=== PATIENT | male | born 1955 | race Caucasian/White ===

== ENCOUNTER 2018-01-12 12:11 | Inpatient (IN) | payer MEDICARE, OTHER ==
[2018-01-12 13:06] LABS: WHITE BLOOD COUNT 16.6 10^3/ul (4.8-10.8)
[2018-01-12 13:06] LABS: ABNORMAL IP MESSAGE 1; HEMOGLOBIN 11.2 g/dl (14.0-18.0); MEAN CORPUSCULAR HEMOGLOBIN 29.7 pg (29.0-33.0); MEAN CORPUSCULAR HGB CONC 31.1 g/dl (32.0-37.0); MEAN CORPUSCULAR VOLUME 95.5 fl (82.0-101.0); MEAN PLATELET VOLUME 13.4 fl (7.4-10.4); PLATELET COUNT 223 10^3/UL (140-415); POSITIVE DIFF @See below; RED BLOOD COUNT 3.77 10^6/ul (4.70-6.10); RED CELL DISTRIBUTION WIDTH 15.3 % (11.5-14.5)
[2018-01-12 13:08] LABS: ADD MAN DIFF? YES
[2018-01-12 13:23] LABS: LACTIC ACID 1.6 mmol/L (0.5-2.0)
[2018-01-12 13:26] LABS: ACANTHOCYTES 1+ (0-0); ANISOCYTOSIS 1+ (0-0); BAND NEUTROPHILS #M 0.9 10^3/ul (0.0-0.6); BAND NEUTROPHILS % (M) 6 % (0-4); LYMPHOCYTES #M 2.9 10^3/ul (0.8-2.9); LYMPHOCYTES % (M) 18 % (15-51); MONOCYTE #M 0.8 10^3/ul (0.3-0.9); MONOCYTES % (M) 5 % (0-11); PLATELET ESTIMATE NORMAL; POIKILOCYTOSIS 1+ (0-0); REACTIVE LYMPHOCYTES #M 0.3 10^3/ul (0.0-0.0); REACTIVE LYMPHOCYTES% (M) 2 % (0-0); SEG NEUT #M 11.6 10^3/ul (1.6-7.5); SEGMENTED NEUTROPHILS (M) % 69 % (39-77); SMUDGE%M 8 % (0-0)
[2018-01-12 13:32] LABS: ALANINE AMINOTRANSFERASE 41 IU/L (13-69); ALBUMIN/GLOBULIN RATIO 1.02; ALKALINE PHOSPHATASE 102 IU/L (42-121); ANION GAP 20 (8-16); ASPARTATE AMINO TRANSFERASE 51 IU/L (15-46); BILIRUBIN,INDIRECT 0.6 mg/dl (0-1.1); BILIRUBIN,TOTAL 0.6 mg/dl (0.2-1.3); BLOOD UREA NITROGEN 116 mg/dl (7-20); CARBON DIOXIDE 27 mmol/L (21-31); CHLORIDE 107 mmol/L (97-110); CREATININE 3.99 mg/dl (0.61-1.24); GLUCOSE 104 mg/dl (70-220); LIPASE 74 U/L (23-300); POTASSIUM 5.2 mmol/L (3.5-5.1); SODIUM 149 mmol/L (135-144); TOTAL PROTEIN 7.9 g/dl (6.1-8.1)
[2018-01-12] MEDS: SODIUM CHLORIDE 0.9% 1L BAG IV* (14:20)
[2018-01-12] MEDS: SOD CHLORIDE 0.9% 500 ML IV (14:20)
[2018-01-12 14:27] LABS: ADD UMIC YES; UR ASCORBIC ACID NEGATIVE (NEGATIVE); UR BILIRUBIN (Dip) NEGATIVE (NEGATIVE); UR BLOOD (Dip) NEGATIVE (NEGATIVE); UR CLARITY SLIGHTLY CLOUDY (CLEAR); UR COLOR AMBER (YELLOW); UR GLUCOSE (Dip) NEGATIVE (NEGATIVE); UR KETONES (Dip) NEGATIVE (NEGATIVE); UR LEUKOCYTE ESTERASE (Dip) TRACE Leu/ul (NEGATIVE); UR MUCUS FEW /HPF (NONE SEEN); UR NITRITE (Dip) NEGATIVE (NEGATIVE); UR RBC 3 /HPF (0-5); UR SPECIFIC GRAVITY (Dip) 1.021 (1.003-1.030); UR TOTAL PROTEIN (Dip) NEGATIVE (NEGATIVE); UR UROBILINOGEN (Dip) 1+ mg/dL (NEGATIVE); UR WBC 10 /HPF (0-5)
[2018-01-12] MEDS: CEFEPIME 2GM/50 ML (PMX) 50 ML IVPB (14:51)
[2018-01-12] MEDS: VANCOMYCIN 1 GM (PMX) 250 ML IVPB (15:58)
[2018-01-12] MEDS ORDERED: ONDANSETRON 4 MG INJ IV (17:30)
[2018-01-12] MEDS ORDERED: ACETAMINOPHEN 325 MG TAB PO (17:30)
[2018-01-12] MEDS ORDERED: NACL 0.9% 3 ML SYG IV (18:00)
[2018-01-12] MEDS ORDERED: DOCUSATE SODIUM 100 MG CAP PO (18:00)
[2018-01-12] MEDS ORDERED: PIPER-TAZO 3.375 GM IV (PMX) 100 ML IVPB (18:00)
[2018-01-12] MEDS ORDERED: ALBUTEROL/IPRATROPIUM (NEB) 3 ML AMP HHN (18:00)
[2018-01-12] MEDS: metroNIDAZOLE 500 MG/NS (PMX) 100 ML IVPB ×2 (19:10→22:15)
[2018-01-12] MEDS: SOD CHLORIDE 0.9% 1,000 ML IV (19:11)
[2018-01-12] MEDS: ALBUTEROL/IPRATROPIUM (NEB) 3 ML AMP HHN (20:00)
[2018-01-12 20:20] LABS: LACTIC ACID 0.8 mmol/L (0.5-2.0)
[2018-01-12] MEDS: LEVOFLOXACIN 250MG/D5W (PMX) 50 ML IVPB (20:20)
[2018-01-12] MEDS: ONDANSETRON 4 MG INJ IV (20:36)
[2018-01-12] MEDS: morphine 2 MG INJ IV (20:37)
[2018-01-12] MEDS: ESCITALOPRAM 10 MG TAB GTB (22:15)
[2018-01-12 22:54] LABS: SODIUM,URINE RANDOM < 13 mmol/L (30-90)
[2018-01-12 22:58] LABS: PROTEIN/CREAT RATIO 0.09 RATIO
[2018-01-13] MEDS: morphine 2 MG INJ IV ×2 (05:16→12:01)
[2018-01-13] MEDS: metroNIDAZOLE 500 MG/NS (PMX) 100 ML IVPB ×3 (05:28→20:23)
[2018-01-13] MEDS: PANTOPRAZOLE 40 MG INJ IV (05:28)
[2018-01-13 06:31] LABS: HEMATOCRIT 30.9 % (42.0-52.0); HEMOGLOBIN 9.6 g/dl (14.0-18.0); MEAN CORPUSCULAR HEMOGLOBIN 30.5 pg (29.0-33.0); MEAN CORPUSCULAR HGB CONC 31.1 g/dl (32.0-37.0); MEAN CORPUSCULAR VOLUME 98.1 fl (82.0-101.0); PLATELET COUNT 177 10^3/UL (140-415); POSITIVE DIFF @See below; RED BLOOD COUNT 3.15 10^6/ul (4.70-6.10); RED CELL DISTRIBUTION WIDTH 14.7 % (11.5-14.5)
[2018-01-13 06:31] LABS: WHITE BLOOD COUNT 10.7 10^3/ul (4.8-10.8)
[2018-01-13 06:34] LABS: ADD MAN DIFF? YES
[2018-01-13 06:59] LABS: URIC ACID 10.2 mg/dl (3.1-7.9)
[2018-01-13 06:59] LABS: CREATINE KINASE 34 IU/L (23-200)
[2018-01-13 07:01] LABS: ALANINE AMINOTRANSFERASE 36 IU/L (13-69); ALBUMIN 2.9 g/dl (3.3-4.9); ALBUMIN/GLOBULIN RATIO 0.93; ALKALINE PHOSPHATASE 75 IU/L (42-121); ANION GAP 21 (8-16); ASPARTATE AMINO TRANSFERASE 28 IU/L (15-46); BILIRUBIN,INDIRECT 0.5 mg/dl (0-1.1); BILIRUBIN,TOTAL 0.5 mg/dl (0.2-1.3); BLOOD UREA NITROGEN 101 mg/dl (7-20); CALCIUM 8.1 mg/dl (8.4-10.2); CARBON DIOXIDE 22 mmol/L (21-31); CHLORIDE 117 mmol/L (97-110); GLUCOSE 76 mg/dl (70-220); MAGNESIUM 2.5 mg/dl (1.7-2.5); POTASSIUM 4.9 mmol/L (3.5-5.1); SODIUM 155 mmol/L (135-144)
[2018-01-13 07:36] LABS: ANISOCYTOSIS 1+ (0-0); BAND NEUTROPHILS % (M) 10 % (0-4); BURR CELLS 1+ (0-0); EOSINOPHILS % (M) 2 % (0-7); LYMPHOCYTES #M 1.2 10^3/ul (0.8-2.9); LYMPHOCYTES % (M) 12 % (15-51); MONOCYTE #M 0.9 10^3/ul (0.3-0.9); MONOCYTES % (M) 9 % (0-11); MYELOCYTES #M 0.1 10^3/ul (0.0-0.0); MYELOCYTES % (M) 1 % (0-0); PLATELET ESTIMATE NORMAL; POIKILOCYTOSIS 2+ (0-0); POLYCHROMASIA 1+ (0-0); PROMYELOCYTES #M 0.1 10^3/ul (0-0); PROMYELOCYTES % (M) 1 % (0-0); SEG NEUT #M 7.1 10^3/ul (1.6-7.5); SEGMENTED NEUTROPHILS (M) % 65 % (39-77); SMUDGE%M 6 % (0-0)
[2018-01-13] MEDS: ALBUTEROL/IPRATROPIUM (NEB) 3 ML AMP HHN ×3 (09:31→19:27)
[2018-01-13] MEDS: THIAMINE 100 MG TAB GTB (10:17)
[2018-01-13] MEDS: MULTIVITAMINS 30 ML CUP GTB (10:17)
[2018-01-13] MEDS: SOD CHLORIDE 0.45% 1,000 ML IV ×3 (10:51→23:41)
[2018-01-13 14:58] LABS: ANION GAP 21 (8-16); BLOOD UREA NITROGEN 90 mg/dl (7-20); CALCIUM 8.5 mg/dl (8.4-10.2); CARBON DIOXIDE 21 mmol/L (21-31); CHLORIDE 118 mmol/L (97-110); CREATININE 2.42 mg/dl (0.61-1.24); GLUCOSE 71 mg/dl (70-220); POTASSIUM 4.6 mmol/L (3.5-5.1); SODIUM 155 mmol/L (135-144)
[2018-01-13] MEDS: LORAZEPAM 2 MG INJ IV (16:16)
[2018-01-13] MEDS: morphine LIQ (10 MG/5 ML) CUP PO ×2 (17:19→23:36)
[2018-01-13] MEDS: HYDROCODONE/APAP (5/325) TAB PO (20:23)
[2018-01-13] MEDS: ESCITALOPRAM 10 MG TAB GTB (20:23)
[2018-01-14] MEDS: PANTOPRAZOLE 40 MG INJ IV (05:30)
[2018-01-14] MEDS: morphine LIQ (10 MG/5 ML) CUP PO ×4 (05:31→22:27)
[2018-01-14] MEDS: metroNIDAZOLE 500 MG/NS (PMX) 100 ML IVPB ×3 (05:31→21:15)
[2018-01-14 06:51] LABS: ADD MAN DIFF? NO
[2018-01-14 06:54] LABS: BASOPHILS % 0.3 % (0.0-2.0); EOSINOPHILS # 0.5 10^3/ul (0.0-0.5); EOSINOPHILS % 4.4 % (0.0-7.0); HEMATOCRIT 30.2 % (42.0-52.0); LYMPHOCYTES # 1.4 10^3/ul (0.8-2.9); MEAN CORPUSCULAR HEMOGLOBIN 29.3 pg (29.0-33.0); MEAN CORPUSCULAR HGB CONC 29.8 g/dl (32.0-37.0); MEAN CORPUSCULAR VOLUME 98.4 fl (82.0-101.0); MONOCYTE # 1.3 10^3/ul (0.3-0.9); MONOCYTES % 12.4 % (0.0-11.0); NEUTROPHILS % 68.2 % (39.0-77.0); PLATELET COUNT 183 10^3/UL (140-415); POSITIVE DIFF @See below; RED BLOOD COUNT 3.07 10^6/ul (4.70-6.10); RED CELL DISTRIBUTION WIDTH 14.9 % (11.5-14.5)
[2018-01-14 06:54] LABS: WHITE BLOOD COUNT 10.3 10^3/ul (4.8-10.8)
[2018-01-14 07:36] LABS: ANION GAP 23 (8-16); BLOOD UREA NITROGEN 70 mg/dl (7-20); CALCIUM 8.9 mg/dl (8.4-10.2); CARBON DIOXIDE 19 mmol/L (21-31); CHLORIDE 120 mmol/L (97-110); CREATININE 1.85 mg/dl (0.61-1.24); GLUCOSE 60 mg/dl (70-220); MAGNESIUM 2.4 mg/dl (1.7-2.5); PHOSPHORUS 4.2 mg/dl (2.5-4.9); POTASSIUM 4.8 mmol/L (3.5-5.1); SODIUM 157 mmol/L (135-144)
[2018-01-14] MEDS: ALBUTEROL/IPRATROPIUM (NEB) 3 ML AMP HHN ×3 (08:27→19:35)
[2018-01-14] MEDS: DEXTROSE 5% 1,000 ML IV ×2 (09:34→18:30)
[2018-01-14] MEDS: THIAMINE 100 MG TAB GTB (09:38)
[2018-01-14] MEDS: MULTIVITAMINS 30 ML CUP GTB (09:44)
[2018-01-14] MEDS: LORAZEPAM 2 MG INJ IV ×3 (09:46→21:36)
[2018-01-14 10:48] LABS: ANISOCYTOSIS 1+ (0-0); BAND NEUTROPHILS #M 0.5 10^3/ul (0.0-0.6); BAND NEUTROPHILS % (M) 5 % (0-4); EOSINOPHILS % (M) 5 % (0-7); ERYTHROBLAST% (NRBC) (M) 1 % (0-0); LYMPHOCYTES #M 1.7 10^3/ul (0.8-2.9); LYMPHOCYTES % (M) 17 % (15-51); MONOCYTE #M 0.4 10^3/ul (0.3-0.9); MONOCYTES % (M) 4 % (0-11); MYELOCYTES #M 0.1 10^3/ul (0.0-0.0); MYELOCYTES % (M) 1 % (0-0); PLATELET ESTIMATE NORMAL; POIKILOCYTOSIS 2+ (0-0); POLYCHROMASIA 2+ (0-0); REACTIVE LYMPHOCYTES #M 0.2 10^3/ul (0.0-0.0); REACTIVE LYMPHOCYTES% (M) 2 % (0-0); SEG NEUT #M 6.8 10^3/ul (1.6-7.5); SEGMENTED NEUTROPHILS (M) % 66 % (39-77); SMUDGE%M 3 % (0-0)
[2018-01-14] MEDS: DIVALPROEX (EC) 250 MG TAB PO ×2 (14:46→21:13)
[2018-01-14 16:16] LABS: ANION GAP 16 (8-16); BLOOD UREA NITROGEN 62 mg/dl (7-20); CALCIUM 8.7 mg/dl (8.4-10.2); CARBON DIOXIDE 23 mmol/L (21-31); CHLORIDE 118 mmol/L (97-110); CREATININE 1.44 mg/dl (0.61-1.24); GLUCOSE 93 mg/dl (70-220); POTASSIUM 4.5 mmol/L (3.5-5.1); SODIUM 152 mmol/L (135-144)
[2018-01-14 18:15] LABS: OSMOLALITY,URINE 517 mOsm/kg (250-1200)
[2018-01-14] MEDS: LEVOFLOXACIN 250MG/D5W (PMX) 50 ML IVPB (21:10)
[2018-01-14] MEDS: LEVETIRACETAM 250 MG TAB PO (21:11)
[2018-01-14] MEDS: ESCITALOPRAM 10 MG TAB GTB (21:11)
[2018-01-15] MEDS: CYCLOBENZAPRINE 10 MG TAB GTB ×2 (02:04→21:37)
[2018-01-15] MEDS: HYDROCODONE/APAP (5/325) TAB PO ×3 (02:04→16:59)
[2018-01-15] MEDS: DEXTROSE 5% 1,000 ML IV ×2 (04:30→14:30)
[2018-01-15] MEDS: LORAZEPAM 2 MG INJ IV (04:56)
[2018-01-15] MEDS: PANTOPRAZOLE 40 MG INJ IV (05:01)
[2018-01-15] MEDS: metroNIDAZOLE 500 MG/NS (PMX) 100 ML IVPB ×3 (05:06→21:28)
[2018-01-15 06:54] LABS: ADD MAN DIFF? NO
[2018-01-15 07:01] LABS: BASOPHILS % 0.2 % (0.0-2.0); EOSINOPHILS # 0.6 10^3/ul (0.0-0.5); EOSINOPHILS % 7.8 % (0.0-7.0); HEMATOCRIT 25.8 % (42.0-52.0); HEMOGLOBIN 7.8 g/dl (14.0-18.0); LYMPHOCYTES # 0.9 10^3/ul (0.8-2.9); LYMPHOCYTES % 11.2 % (15.0-51.0); MEAN CORPUSCULAR HEMOGLOBIN 29.9 pg (29.0-33.0); MEAN CORPUSCULAR HGB CONC 30.2 g/dl (32.0-37.0); MEAN CORPUSCULAR VOLUME 98.9 fl (82.0-101.0); MONOCYTE # 1.1 10^3/ul (0.3-0.9); MONOCYTES % 13.2 % (0.0-11.0); NEUTROPHIL # 5.5 10^3/ul (1.6-7.5); NEUTROPHILS % 67.1 % (39.0-77.0); PLATELET COUNT 142 10^3/UL (140-415); RED BLOOD COUNT 2.61 10^6/ul (4.70-6.10); RED CELL DISTRIBUTION WIDTH 14.6 % (11.5-14.5)
[2018-01-15 07:01] LABS: WHITE BLOOD COUNT 8.2 10^3/ul (4.8-10.8)
[2018-01-15 07:34] LABS: ANION GAP 12 (8-16); BLOOD UREA NITROGEN 54 mg/dl (7-20); CALCIUM 8.1 mg/dl (8.4-10.2); CARBON DIOXIDE 23 mmol/L (21-31); CHLORIDE 116 mmol/L (97-110); CREATININE 1.22 mg/dl (0.61-1.24); GLUCOSE 129 mg/dl (70-220); PHOSPHORUS 3.5 mg/dl (2.5-4.9); POTASSIUM 3.8 mmol/L (3.5-5.1); SODIUM 147 mmol/L (135-144)
[2018-01-15] MEDS ORDERED: ALBUTEROL HFA 8 GM INHALER INH (08:00)
[2018-01-15] MEDS ORDERED: IPRATROPIUM (HFA) 12.9 GM INHALER INH (08:00)
[2018-01-15] MEDS: ALBUTEROL/IPRATROPIUM (NEB) 3 ML AMP HHN ×3 (08:41→19:39)
[2018-01-15] MEDS: THIAMINE 100 MG TAB GTB (08:53)
[2018-01-15] MEDS: DIVALPROEX (EC) 250 MG TAB PO ×3 (08:53→21:31)
[2018-01-15] MEDS: MULTIVITAMINS 30 ML CUP GTB (08:53)
[2018-01-15] MEDS: LEVETIRACETAM 250 MG TAB PO ×2 (08:53→21:30)
[2018-01-15] MEDS: morphine LIQ (10 MG/5 ML) CUP PO ×2 (11:44→21:45)
[2018-01-15 14:02] LABS: HEMATOCRIT 28.2 % (42.0-52.0); HEMOGLOBIN 8.7 g/dl (14.0-18.0)
[2018-01-15] MEDS: LEVOFLOXACIN 500MG/D5W (PMX) 100 ML IVPB (21:28)
[2018-01-15] MEDS: ESCITALOPRAM 10 MG TAB GTB (21:31)
[2018-01-16] MEDS: HYDROCODONE/APAP (5/325) TAB PO ×4 (01:49→21:26)
[2018-01-16] MEDS: PANTOPRAZOLE 40 MG INJ IV (03:50)
[2018-01-16] MEDS: metroNIDAZOLE 500 MG/NS (PMX) 100 ML IVPB ×2 (03:50→13:32)
[2018-01-16 06:34] LABS: ADD MAN DIFF? NO
[2018-01-16 06:41] LABS: BASOPHILS % 0.2 % (0.0-2.0); EOSINOPHILS # 0.6 10^3/ul (0.0-0.5); EOSINOPHILS % 7.7 % (0.0-7.0); HEMATOCRIT 28.4 % (42.0-52.0); HEMOGLOBIN 8.9 g/dl (14.0-18.0); LYMPHOCYTES # 0.8 10^3/ul (0.8-2.9); LYMPHOCYTES % 9.2 % (15.0-51.0); MEAN CORPUSCULAR HEMOGLOBIN 30.6 pg (29.0-33.0); MEAN CORPUSCULAR HGB CONC 31.3 g/dl (32.0-37.0); MEAN CORPUSCULAR VOLUME 97.6 fl (82.0-101.0); MEAN PLATELET VOLUME 12.7 fl (7.4-10.4); MONOCYTE # 0.8 10^3/ul (0.3-0.9); MONOCYTES % 9.3 % (0.0-11.0); NEUTROPHILS % 73.1 % (39.0-77.0); PLATELET COUNT 141 10^3/UL (140-415); POSITIVE DIFF @See below; RED BLOOD COUNT 2.91 10^6/ul (4.70-6.10); RED CELL DISTRIBUTION WIDTH 14.5 % (11.5-14.5)
[2018-01-16 06:41] LABS: WHITE BLOOD COUNT 8.2 10^3/ul (4.8-10.8)
[2018-01-16 07:38] LABS: PROTEIN, TOTAL 5.9 g/dL (6.1-8.1)
[2018-01-16] MEDS: ALBUTEROL/IPRATROPIUM (NEB) 3 ML AMP HHN ×3 (07:55→19:47)
[2018-01-16 07:56] LABS: ANION GAP 14 (8-16); BLOOD UREA NITROGEN 44 mg/dl (7-20); CALCIUM 8.2 mg/dl (8.4-10.2); CARBON DIOXIDE 23 mmol/L (21-31); CHLORIDE 116 mmol/L (97-110); CREATININE 1.13 mg/dl (0.61-1.24); GLUCOSE 99 mg/dl (70-220); MAGNESIUM 1.9 mg/dl (1.7-2.5); PHOSPHORUS 3.6 mg/dl (2.5-4.9); SODIUM 149 mmol/L (135-144)
[2018-01-16 08:44] LABS: ANISOCYTOSIS 2+ (0-0); BAND NEUTROPHILS #M 0.9 10^3/ul (0.0-0.6); BAND NEUTROPHILS % (M) 11 % (0-4); EOSINOPHILS % (M) 12 % (0-7); GIANT THROMBO% (M) 1 % (0-0); LYMPHOCYTES #M 0.9 10^3/ul (0.8-2.9); LYMPHOCYTES % (M) 11 % (15-51); MONOCYTE #M 0.5 10^3/ul (0.3-0.9); MONOCYTES % (M) 7 % (0-11); MYELOCYTES % (M) 1 % (0-0); PLATELET ESTIMATE NORMAL; POIKILOCYTOSIS 2+ (0-0); POLYCHROMASIA 3+ (0-0); SEG NEUT #M 4.8 10^3/ul (1.6-7.5); SEGMENTED NEUTROPHILS (M) % 58 % (39-77); SMUDGE%M 2 % (0-0)
[2018-01-16] MEDS: DIVALPROEX (EC) 250 MG TAB PO ×3 (09:04→21:20)
[2018-01-16] MEDS: THIAMINE 100 MG TAB GTB (09:04)
[2018-01-16] MEDS: LEVETIRACETAM 250 MG TAB PO ×2 (09:04→21:20)
[2018-01-16] MEDS: MULTIVITAMINS 30 ML CUP GTB (09:04)
[2018-01-16] MEDS: CYCLOBENZAPRINE 10 MG TAB GTB (09:47)
[2018-01-16] MEDS: BISACODYL (EC) 5 MG TAB PO (12:03)
[2018-01-16] MEDS: DEXTROSE 5% 1,000 ML IV (13:32)
[2018-01-16] MEDS: morphine LIQ (10 MG/5 ML) CUP PO (17:39)
[2018-01-16] MEDS: ESCITALOPRAM 10 MG TAB GTB (21:20)
[2018-01-17] MEDS: PANTOPRAZOLE 40 MG INJ IV (04:10)
[2018-01-17] MEDS: HYDROCODONE/APAP (5/325) TAB PO ×2 (04:10→11:33)
[2018-01-17] MEDS: ALBUTEROL/IPRATROPIUM (NEB) 3 ML AMP HHN ×3 (07:29→19:34)
[2018-01-17 07:44] LABS: ADD MAN DIFF? NO
[2018-01-17] MEDS: MULTIVITAMINS 30 ML CUP GTB (07:53)
[2018-01-17] MEDS: LEVETIRACETAM 250 MG TAB PO ×2 (07:53→21:20)
[2018-01-17] MEDS: DIVALPROEX (EC) 250 MG TAB PO ×3 (07:53→21:24)
[2018-01-17] MEDS: DEXTROSE 5% 1,000 ML IV (07:53)
[2018-01-17] MEDS: THIAMINE 100 MG TAB GTB (07:53)
[2018-01-17] MEDS: morphine LIQ (10 MG/5 ML) CUP PO (07:53)
[2018-01-17 07:55] LABS: WHITE BLOOD COUNT 6.8 10^3/ul (4.8-10.8)
[2018-01-17 07:55] LABS: ABNORMAL IP MESSAGE 1; BASOPHILS % 0.3 % (0.0-2.0); EOSINOPHILS # 0.7 10^3/ul (0.0-0.5); EOSINOPHILS % 9.8 % (0.0-7.0); HEMATOCRIT 26.5 % (42.0-52.0); HEMOGLOBIN 8.1 g/dl (14.0-18.0); LYMPHOCYTES % 15.1 % (15.0-51.0); MEAN CORPUSCULAR HEMOGLOBIN 29.7 pg (29.0-33.0); MEAN CORPUSCULAR HGB CONC 30.6 g/dl (32.0-37.0); MEAN CORPUSCULAR VOLUME 97.1 fl (82.0-101.0); MEAN PLATELET VOLUME 13.4 fl (7.4-10.4); MONOCYTE # 0.9 10^3/ul (0.3-0.9); MONOCYTES % 12.6 % (0.0-11.0); NEUTROPHIL # 4.2 10^3/ul (1.6-7.5); NEUTROPHILS % 61.8 % (39.0-77.0); PLATELET COUNT 146 10^3/UL (140-415); POSITIVE DIFF @See below; RED BLOOD COUNT 2.73 10^6/ul (4.70-6.10); RED CELL DISTRIBUTION WIDTH 14.7 % (11.5-14.5)
[2018-01-17 08:41] LABS: ANION GAP 14 (8-16); BLOOD UREA NITROGEN 41 mg/dl (7-20); CALCIUM 8.3 mg/dl (8.4-10.2); CARBON DIOXIDE 22 mmol/L (21-31); CHLORIDE 114 mmol/L (97-110); GLUCOSE 98 mg/dl (70-220); MAGNESIUM 1.9 mg/dl (1.7-2.5); PHOSPHORUS 3.5 mg/dl (2.5-4.9); POTASSIUM 4.2 mmol/L (3.5-5.1); SODIUM 146 mmol/L (135-144)
[2018-01-17] MEDS: LORAZEPAM 2 MG INJ IV ×3 (08:44→21:24)
[2018-01-17] MEDS: CYCLOBENZAPRINE 10 MG TAB GTB (10:06)
[2018-01-17] MEDS: ACETAMINOPHEN 325 MG TAB PO (10:06)
[2018-01-17] MEDS: MAGNESIUM HYDROXIDE 30ML CUP PO (11:32)
[2018-01-17] MEDS ORDERED: VITAMIN A & D 5 GM OINT PACKET TOP (12:49)
[2018-01-17] MEDS: ESCITALOPRAM 10 MG TAB GTB (21:20)
[2018-01-18] MEDS: PANTOPRAZOLE 40 MG INJ IV (05:17)
[2018-01-18] MEDS: morphine LIQ (10 MG/5 ML) CUP PO ×4 (05:17→23:04)
[2018-01-18] MEDS: DEXTROSE 5% 1,000 ML IV (05:30)
[2018-01-18] MEDS: ALBUTEROL/IPRATROPIUM (NEB) 3 ML AMP HHN ×3 (07:15→19:29)
[2018-01-18 08:01] LABS: ADD MAN DIFF? NO
[2018-01-18 08:35] LABS: ANION GAP 12 (8-16); BLOOD UREA NITROGEN 35 mg/dl (7-20); CARBON DIOXIDE 24 mmol/L (21-31); CHLORIDE 108 mmol/L (97-110); CREATININE 0.87 mg/dl (0.61-1.24); GLUCOSE 105 mg/dl (70-220); PHOSPHORUS 2.7 mg/dl (2.5-4.9); POTASSIUM 3.5 mmol/L (3.5-5.1); SODIUM 140 mmol/L (135-144)
[2018-01-18] MEDS: MULTIVITAMINS 30 ML CUP GTB (09:09)
[2018-01-18] MEDS: LEVETIRACETAM 250 MG TAB PO ×2 (09:09→20:22)
[2018-01-18] MEDS: DIVALPROEX (EC) 250 MG TAB PO ×3 (09:10→20:22)
[2018-01-18] MEDS: THIAMINE 100 MG TAB GTB (09:11)
[2018-01-18 09:44] LABS: ABNORMAL IP MESSAGE 1; BASOPHILS % 0.1 % (0.0-2.0); EOSINOPHILS # 0.6 10^3/ul (0.0-0.5); EOSINOPHILS % 9.4 % (0.0-7.0); HEMATOCRIT 26.2 % (42.0-52.0); HEMOGLOBIN 8.3 g/dl (14.0-18.0); LYMPHOCYTES % 13.9 % (15.0-51.0); MEAN CORPUSCULAR HEMOGLOBIN 30.3 pg (29.0-33.0); MEAN CORPUSCULAR HGB CONC 31.7 g/dl (32.0-37.0); MEAN CORPUSCULAR VOLUME 95.6 fl (82.0-101.0); MEAN PLATELET VOLUME 13.3 fl (7.4-10.4); MONOCYTE # 0.7 10^3/ul (0.3-0.9); MONOCYTES % 10.4 % (0.0-11.0); NEUTROPHIL # 4.5 10^3/ul (1.6-7.5); NEUTROPHILS % 65.5 % (39.0-77.0); PLATELET COUNT 157 10^3/UL (140-415); POSITIVE DIFF @See below; RED BLOOD COUNT 2.74 10^6/ul (4.70-6.10); RED CELL DISTRIBUTION WIDTH 14.6 % (11.5-14.5)
[2018-01-18 09:44] LABS: WHITE BLOOD COUNT 6.8 10^3/ul (4.8-10.8)
[2018-01-18 16:16] LABS: CREATININE, RANDOM URINE 61 mg/dL (20-370); PROTEIN/CREATININE RATIO 492 mg/g creat (22-128)
[2018-01-18] MEDS: ESCITALOPRAM 10 MG TAB GTB (20:22)
[2018-01-19] MEDS: DEXTROSE 5% 1,000 ML IV (02:28)
[2018-01-19] MEDS: morphine LIQ (10 MG/5 ML) CUP PO ×3 (06:37→18:34)
[2018-01-19] MEDS: MAGNESIUM HYDROXIDE 30ML CUP PO (06:38)
[2018-01-19] MEDS: PANTOPRAZOLE 40 MG INJ IV (06:38)
[2018-01-19 07:40] LABS: ADD MAN DIFF? NO
[2018-01-19 07:46] LABS: WHITE BLOOD COUNT 6.3 10^3/ul (4.8-10.8)
[2018-01-19 07:46] LABS: BASOPHILS % 0.3 % (0.0-2.0); EOSINOPHILS # 0.7 10^3/ul (0.0-0.5); EOSINOPHILS % 10.9 % (0.0-7.0); HEMATOCRIT 26.6 % (42.0-52.0); HEMOGLOBIN 8.4 g/dl (14.0-18.0); LYMPHOCYTES # 1.1 10^3/ul (0.8-2.9); LYMPHOCYTES % 16.9 % (15.0-51.0); MEAN CORPUSCULAR HGB CONC 31.6 g/dl (32.0-37.0); MEAN PLATELET VOLUME 12.7 fl (7.4-10.4); MONOCYTE # 0.9 10^3/ul (0.3-0.9); NEUTROPHIL # 3.6 10^3/ul (1.6-7.5); NEUTROPHILS % 56.8 % (39.0-77.0); PLATELET COUNT 184 10^3/UL (140-415); RED CELL DISTRIBUTION WIDTH 14.7 % (11.5-14.5)
[2018-01-19 08:05] LABS: ANION GAP 9 (8-16); BLOOD UREA NITROGEN 32 mg/dl (7-20); CALCIUM 8.1 mg/dl (8.4-10.2); CARBON DIOXIDE 27 mmol/L (21-31); CHLORIDE 108 mmol/L (97-110); CREATININE 0.82 mg/dl (0.61-1.24); GLUCOSE 104 mg/dl (70-220); POTASSIUM 3.7 mmol/L (3.5-5.1); SODIUM 140 mmol/L (135-144)
[2018-01-19] MEDS: ALBUTEROL/IPRATROPIUM (NEB) 3 ML AMP HHN ×3 (08:28→19:48)
[2018-01-19] MEDS: LEVETIRACETAM 250 MG TAB PO ×2 (09:31→20:46)
[2018-01-19] MEDS: THIAMINE 100 MG TAB GTB (09:31)
[2018-01-19] MEDS: DIVALPROEX (EC) 250 MG TAB PO ×3 (09:31→20:46)
[2018-01-19] MEDS: MULTIVITAMINS 30 ML CUP GTB (09:31)
[2018-01-19] MEDS: ESCITALOPRAM 10 MG TAB GTB (20:46)
[2018-01-19 20:57] LABS: ALBUMIN 2.8 g/dL (3.8-4.8); ALPHA-1-GLOBULINS 0.4 g/dL (0.2-0.3); ALPHA-2-GLOBULINS 0.9 g/dL (0.5-0.9); BETA 2 GLOBULINS 0.2 g/dL (0.2-0.5); BETA GLOBULINS 0.4 g/dL (0.4-0.6); GAMMA GLOBULINS 1.1 g/dL (0.8-1.7)
[2018-01-20] MEDS: DEXTROSE 5% 1,000 ML IV (00:36)
[2018-01-20] MEDS: PANTOPRAZOLE 40 MG INJ IV (06:05)
[2018-01-20 07:20] LABS: ADD MAN DIFF? NO
[2018-01-20 07:26] LABS: WHITE BLOOD COUNT 5.8 10^3/ul (4.8-10.8)
[2018-01-20 07:26] LABS: BASOPHILS % 0.3 % (0.0-2.0); EOSINOPHILS # 0.5 10^3/ul (0.0-0.5); EOSINOPHILS % 9.1 % (0.0-7.0); HEMOGLOBIN 8.1 g/dl (14.0-18.0); LYMPHOCYTES # 1.1 10^3/ul (0.8-2.9); LYMPHOCYTES % 18.7 % (15.0-51.0); MEAN CORPUSCULAR HEMOGLOBIN 29.2 pg (29.0-33.0); MEAN CORPUSCULAR HGB CONC 31.2 g/dl (32.0-37.0); MEAN CORPUSCULAR VOLUME 93.9 fl (82.0-101.0); MEAN PLATELET VOLUME 12.7 fl (7.4-10.4); MONOCYTE # 0.8 10^3/ul (0.3-0.9); MONOCYTES % 14.1 % (0.0-11.0); NEUTROPHIL # 3.3 10^3/ul (1.6-7.5); NEUTROPHILS % 55.9 % (39.0-77.0); PLATELET COUNT 198 10^3/UL (140-415); RED BLOOD COUNT 2.77 10^6/ul (4.70-6.10)
[2018-01-20 07:58] LABS: ANION GAP 10 (8-16); BLOOD UREA NITROGEN 30 mg/dl (7-20); CALCIUM 8.2 mg/dl (8.4-10.2); CARBON DIOXIDE 26 mmol/L (21-31); CHLORIDE 108 mmol/L (97-110); CREATININE 0.69 mg/dl (0.61-1.24); GLUCOSE 95 mg/dl (70-220); MAGNESIUM 1.9 mg/dl (1.7-2.5); PHOSPHORUS 3.4 mg/dl (2.5-4.9); POTASSIUM 3.8 mmol/L (3.5-5.1); SODIUM 140 mmol/L (135-144)
[2018-01-20] MEDS: ALBUTEROL/IPRATROPIUM (NEB) 3 ML AMP HHN ×2 (08:08→13:17)
[2018-01-20] MEDS: MULTIVITAMINS 30 ML CUP GTB (08:53)
[2018-01-20] MEDS: LEVETIRACETAM 250 MG TAB PO (08:53)
[2018-01-20] MEDS: DIVALPROEX (EC) 250 MG TAB PO ×2 (08:54→14:14)
[2018-01-20] MEDS: THIAMINE 100 MG TAB GTB (08:55)
== END 2018-01-20 15:44 | DRG 388 ==
LOC: E/R 12:11 → TEL 17:16
PROC: 5A1955Z Respiratory Ventilation, Greater than 96 Consecutive Hours (ICD-10-PCS; principal; 2018-01-12)
DX: K56.7 Ileus, unspecified (principal); G92 Toxic encephalopathy; J18.9 Pneumonia, unspecified organism; N17.9 Acute kidney failure, unspecified; E87.0 Hyperosmolality and hypernatremia; J96.10 Chronic respiratory failure, unspecified whether with hypoxia or hypercapnia; G93.1 Anoxic brain damage, not elsewhere classified; R65.10 Systemic inflammatory response syndrome (SIRS) of non-infectious origin without acute organ dysfunction; G25.3 Myoclonus; Z93.0 Tracheostomy status; R19.7 Diarrhea, unspecified; Z93.1 Gastrostomy status; E87.5 Hyperkalemia; I10 Essential (primary) hypertension; D64.9 Anemia, unspecified; M89.9 Disorder of bone, unspecified; R13.10 Dysphagia, unspecified; I44.4 Left anterior fascicular block
CPT/HCPCS: 36415; 71045; 74018; 74176; 76775; 80048; 80053; 81001; 81003; 82550; 82570; 83605; 83690; 83735; 83935; 84100; 84155; 84156; 84165; 84166; 84300; 84560; 85014; 85018; 85025; 86320; 86325; 87040; 87045; 87070; 87075; 87086; 89190; 93005; 94002; 94003; 94640; 96365; 96375; 99285-25